=== PATIENT | female | born 1990 | race African-American/Black ===

== ENCOUNTER 2021-02-10 01:48 | Emergency (ER) | payer MEDICAID ==
[~2021-02-10] VITALS: Ht 160 cm; Wt 52.0 kg
[2021-02-10] MEDS ORDERED: KETOROLAC 30MG/ML VIAL IV STA (02:25)
[2021-02-10] MEDS ORDERED: METOCLOPRAMIDE HCL 10MG/2ML VIAL IV STA (02:25)
[2021-02-10] MEDS ORDERED: FAMOTIDINE 20MG/2ML VIAL IV STA (02:25)
[2021-02-10] MEDS ORDERED: SODIUM CHLORIDE 0.9% 1,000 ML IV ONE (02:30)
[2021-02-10] MEDS ORDERED: DIPHENHYDRAMINE 50MG/ML VIAL IV ONE (02:30)
[2021-02-10 03:34] LABS: BASOPHILS % 0.4 % (0.0-2.0); EOSINOPHILS % 0.1 % (0.0-5.0); HEMATOCRIT. 42.6 % (36.0-48.0); HEMOGLOBIN. 14.6 g/dL (12.0-16.0); LYMPHOCYTES % 8.7 % (20.0-50.0); MEAN CORPUSCULAR HEMOGLOBIN 30.9 pg (28.0-32.0); MEAN CORPUSCULAR VOLUME 90.4 fL (81.0-99.0); MEAN PLATELET VOLUME 9.4 fl (7.4-10.4); MONOCYTES % 5.4 % (2.0-8.0); NEUTROPHILS % 85.4 % (40.0-76.0); PLATELET 215 x1000/uL (130-400); RED BLOOD CELL COUNT 4.71 mill/uL (4.2-5.4); RED CELL DISTRIBUTION WIDTH 13.6 % (11.6-14.6)
[2021-02-10 03:41] LABS: CHLORIDE 110 mEq/L (98-107)
[2021-02-10 03:45] LABS: ETHANOL BLOOD < 10 mg/dL
[2021-02-10] MEDS ORDERED: KCL 10MEQ/50ML PREMIX 50 ML IV NR (04:00)
[2021-02-10 04:07] LABS: HCG SCREEN NEGATIVE
[2021-02-10] MEDS ORDERED: HYDR-4001 MT (06:07)
[2021-02-10] MEDS ORDERED: ONDA4TAB5 MT (06:07)
[2021-02-10] MEDS ORDERED: DOXY100C2 MT (06:07)
[2021-02-10] MEDS ORDERED: IBUP-2028 MT (06:07)
[2021-02-10] MEDS ORDERED: POTASSIUM CHLORIDE 20MEQ TABLET SR PO ONE (06:30)
[2021-02-10 06:56] VITALS: BP 120/80
[2021-02-10] MEDS ORDERED: IOHEXOL-300 100 ML BOTTLE ONE (07:23)
[2021-02-10 08:29] LABS: CLARITY URINE CLEAR (CLEAR); COLOR URINE ORANGE (YELLOW); KETONES URINE NEGATIVE (NEGATIVE); LEUKOCYTE ESTERASE URINE TRACE (NEGATIVE); NITRITE URINE NEGATIVE (NEGATIVE); OCCULT BLOOD URINE 3+ (NEGATIVE); PH URINE >=9.0 (4.5-8.0); PROTEIN URINE 1+ (NEGATIVE); SPECIFIC GRAVITY URINE 1.052 (1.005-1.030)
[2021-02-10 08:53] LABS: *AMPHETAMINES SCREEN URINE NEGATIVE (NEGATIVE); *BARBITURATES SCREEN URINE NEGATIVE (NEGATIVE); *BENZODIAZEPINES SCREEN URINE NEGATIVE (NEGATIVE); *COCAINE SCREEN URINE NEGATIVE (NEGATIVE)
[2021-02-10 08:54] LABS: METHADONE URINE SCREEN NEGATIVE (NEGATIVE); OPIATES URINE SCREEN NEGATIVE (NEGATIVE); PHENCYCLIDINE URINE SCREEN NEGATIVE (NEGATIVE)
[2021-02-10 08:58] LABS: CANNABINOID URINE SCREEN PRESUMTIVE POSITIVE (NEGATIVE)
== END 2021-02-10 07:09 | disposition home or self-care (01) ==
LOC: ER 01:48
DX: R10.9 Unspecified abdominal pain (principal); T83.89XA Other specified complication of genitourinary prosthetic devices, implants and grafts, initial encounter; J45.909 Unspecified asthma, uncomplicated; Y83.8 Other surgical procedures as the cause of abnormal reaction of the patient, or of later complication, without mention of misadventure at the time of the procedure; Y92.9 Unspecified place or not applicable
CPT/HCPCS: 36415; 74177; 80053; 80305; 80320; 81003; 83690; 84703; 85025; 96361; 96374; 96375; 99285; J1200; J1885; J2765; J3480; J3490; J7030; Q9967; G0480